=== PATIENT | female | born 1955 | race Caucasian/White ===

== ENCOUNTER 2016-08-30 23:40 | Emergency (ER) | payer SELFPAY ==
[~2016-08-30 23:40] MED LIST: ASPIRIN325 M1 PO; DICYCLOMINE HCL20 MG; PHENERGAN; PHENERGAN25 M1 PO; PRILOSEC20 MG PO
[2016-08-30] MEDS ORDERED: NO MEDICATIONS (23:52)
== END 2016-08-31 00:49 | disposition home or self-care (01) ==
LOC: SED 23:40
DX: J20.9 Acute bronchitis, unspecified (principal); K21.9 Gastro-esophageal reflux disease without esophagitis; Z90.49 Acquired absence of other specified parts of digestive tract; Z88.8 Allergy status to other drugs, medicaments and biological substances; F17.200 Nicotine dependence, unspecified, uncomplicated
CPT/HCPCS: 94640; 99283

== ENCOUNTER 2016-09-02 20:46 | Emergency (ER) | payer SELFPAY ==
--- NOTE | ~2016-09-02 | CR63 ---
[facility]. [facility] A Service of [facility] & [facility] RADIOLOGY TEXT RESULTS PATIENT: MARGAUX DYSON LOCATION: SED : 59 UNIT #: [id number] AGE: [address]: DELBERT TAPIA SEX: F ORDER DR: [id number] [place] [id number] E MR#: [id number] Acc #: [id number] NAME: MARGAUX DYSON : 1955 SEX: F STUDY DATE/TIME: 09/02/2016 21:45 UNIT: SED ROOM: STUDY DESCRIPTION: CR Chest 2 View Attending Physician: Delbert Tapia Aprn Ordering Physician: Physician Non-Staff Primary Care Physician: Camila Giang A.P.R.N. MEDICAL IMAGING REPORT This report is preliminary unless electronic signature is present. EXAM Two-view chest. INDICATION Cough for 1 month. Chest tightness. Allergic reaction to medication. FINDINGS PA and lateral views of the chest compared to 01/29/2012. Heart and mediastinal contour is within normal limits. There is increased interstitial markings in both lungs and lungs are hyperinflated. No new pulmonary opacities. No pleural effusion. IMPRESSION No acute findings. Chronic interstitial opacities in both lungs are unchanged from 01/29/2012. Dictated by... Juan A Ruth M.D. THIS IS AN ELECTRONICALLY VERIFIED REPORT Juan A Ruth M.D. at 09/03/2016 3:26 PM HUY/shane TD: 09/03/2016 00:42 JOB #: [id number] MEDICAL IMAGING REPORT Page 1 of 1
[~2016-09-02 20:46] MED LIST changes: +NO MEDICATIONS
[2016-09-02] MEDS ORDERED: ERYTHROMYCIN B500 MG PO (20:49)
== END 2016-09-02 22:36 | disposition home or self-care (01) ==
LOC: SED 20:46
DX: R21 Rash and other nonspecific skin eruption (principal); T36.8X5A Adverse effect of other systemic antibiotics, initial encounter; J02.9 Acute pharyngitis, unspecified; Z90.49 Acquired absence of other specified parts of digestive tract; Z98.51 Tubal ligation status; Z88.1 Allergy status to other antibiotic agents; F17.210 Nicotine dependence, cigarettes, uncomplicated
CPT/HCPCS: 71020; 99283